=== PATIENT | male | born 1970 | race Caucasian/White ===

== ENCOUNTER 2022-08-20 13:52 | Emergency (ER) | payer SELFPAY ==
[~2022-08-20] VITALS: Ht 177.8 cm; Wt 88.5 kg
[2022-08-20 14:36] LABS: BASO % 0.7 % (0.0-1.0); EOS # 0.1 10*3/uL (0.0-0.4); EOS % 1.7 % (1.0-4.0); HEMATOCRIT 42.7 % (42.0-52.0); LYMPH # 2.4 10*3/uL (1.3-4.4); LYMPH % 39.8 % (27.0-41.0); MEAN CELL VOLUME 90.1 fl (80.0-94.0); MEAN CORPUSCULAR HGB CONC 34.4 g/dl (33.0-37.0); MEAN PLATELET VOLUME 9.6 fl (9.6-12.3); MONO # 0.4 10*3/uL (0.1-1.0); MONO % 6.5 % (3.0-9.0); NEUT # 3.1 10*3/uL (2.3-7.9); PLATELET COUNT AUTOMATED 284 10*3/uL (130-400); RED BLOOD COUNT 4.74 10*6/uL (4.50-5.90); RED CELL DISTRI WIDTH 12.7 % (0-14.5)
[2022-08-20 14:59] LABS: ACT PARTIAL THROMBO TIME 27.5 SECONDS (20.0-32.1); ALKALINE PHOSPHATASE 94 U/L (46-116); BUN 8 mg/dl (9-23); CHLORIDE 104 mmol/L (98-107); POTASSIUM 3.4 mmol/L (3.4-5.1); SGPT/ALT 24 U/L (10-49); TOTAL PROTEIN 7.1 gm/dL (6.0-8.0)
== END 2022-08-20 16:53 | disposition home or self-care (01) ==
LOC: ED 13:52
PROVIDERS: Nurse Practitioner Family
DX: R55 Syncope and collapse (principal); R10.13 Epigastric pain; R42 Dizziness and giddiness; H53.8 Other visual disturbances; Z87.891 Personal history of nicotine dependence